=== PATIENT | male | born 1960 | race Caucasian/White ===

== ENCOUNTER 2016-10-25 12:45 | Observation (INO) ==
--- NOTE | 2016-10-25 13:34 | Emergency Department Note ---
Disposition Clinical Impression: Hip pain, Unable to walk, Muscle spasm Disposition: Home, Self-Care Condition: Fair Referrals: Linda Penlaoza UNDERWATER WELDER [Primary Care Provider] - Forms: ED Satisfaction Letter Time of Disposition: 15:27 (navarrete obsv) Fall HPI - General Chief Complaint: ED Fall Stated Complaint: pain to right hip Time Seen by Provider: 10/25/16 13:00 Source: patient, EMS Mode of arrival: EMS Limitations: no limitations Nursing Notes Reviewed: Yes Vital Signs Reviewed: Yes - History of Present Illness HPI Narrative: Patient reportedly took 510 mg Flexeril 5 days ago collapsed at home and fell and hit his head since then he has been nonweightbearing unable to put any weight on the hip and is complaining of hip pain and inability to ambulate since the fall Pt Subjective Complaint: fall Onset (ago): day(s) (5) Fall From: standing Fall Witnessed: no Place Fall Occurred: home Loss of Consciousness: none Prolonged Down Time?: no (but unablle to ambulate since fall) Symptoms Prior to Fall: none Context: tripped/slipped, history of frequent falls Location of injury: hip Location of injury - extremities: Right: hip Severity: severe Severity scale (1-10): 10 Quality: unable to describe Associated symptoms (after fall): Reports: unable to walk. Denies: headache, neck pain, numbness, weakness, chest pain, shortness of breath, abdominal pain, hematuria, lightheaded, vertigo, confusion - Related Data Home Medications Medication Instructions Recorded Confirmed Albuterol Sulfate [Albuterol 0 puff IH Q6HR 10/25/16 10/25/16 Inhaler] Budesonide/Formoterol 160/4.5 2 puff IH BIDR 10/25/16 10/25/16 [Symbicort 160/4.5] Cyclobenzaprine [Flexeril] 10 mg PO HS 10/25/16 10/25/16 Duloxetine HCl 40 mg PO DAILY 10/25/16 10/25/16 Fenofibrate [Lofibra] 160 mg PO DAILY 10/25/16 10/25/16 Gabapentin [Neurontin] 800 mg PO QID 10/25/16 10/25/16 Insulin ASPART [NovoLOG] 10 unit SQ TIDWM 10/25/16 10/25/16 Linagliptin [Tradjenta] 5 mg PO DAILY 10/25/16 10/25/16 Lisinopril [Zestril] 10 mg PO DAILY 10/25/16 10/25/16 Omeprazole 20 mg PO DAILY 10/25/16 10/25/16 Pravastatin Sodium 10 mg PO HS 10/25/16 10/25/16 Allergies Allergy/AdvReac Type Severity Reaction Status Date / Time diphenhydramine Allergy Nausea Verified 11/29/15 10:16 [From Benadryl] All systems ED: reviewed and negative except as stated. Constitutional: Reports: weakness. Denies: fever, chills Eyes: Denies: vision change ENT ED: Denies: ear pain, throat pain Cardiovascular: Denies: chest pain, palpitations Respiratory: Denies: cough, dyspnea, wheezes Gastrointestinal: Denies: abdominal pain, nausea, vomiting Genitourinary: Denies: urgency, dysuria, frequency Musculoskeletal: Reports: arthralgia, myalgia Integumentary: Denies: rash, abrasion Neurological: Reports: weakness. Denies: headache Psychiatric: Denies: anxiety Endocrine: Reports: fatigue Hematological/Lymphatic: Denies: easy bleeding Allergic/Immunologic: Denies: facial swelling Fall PMH - Past Medical History Medical history: Reports: COPD, diabetes, GERD, hypertension, other Surgical history: Reports: appendectomy Psychiatric history: Reports: no psych history - Social History Smoking Status: Current every day smoker Alcohol use: Reports: none Drug use: Reports: none Physical Exam - General Limitations: no limitations General appearance: alert, in no apparent distress - Head Head exam: atraumatic, normocephalic, normal inspection - Eye Eye exam: Present: normal appearance, PERRL, EOMI - ENT ENT exam: normal exam, normal oropharynx, mucous membranes moist, TM's normal bilaterally, normal external ear exam - Neck Neck exam: Present: normal inspection, full ROM, trachea midline - Chest Chest inspection: Present: normal inspection, symmetric chest wall rise - Respiratory Respiratory exam: Present: normal lung sounds bilaterally - Cardiovascular Cardiovascular exam: Present: regular rate, normal rhythm, normal heart sounds - Abdominal Exam Abdominal exam: Present: soft, Non-Tender, normal bowel sounds - Expanded Upper Extremity Exam Shoulder exam: Present: normal inspection, full ROM Arm exam: Present: normal inspection, full ROM Elbow exam: Present: normal inspection, full ROM Forearm/Wrist exam: Present: normal inspection, full ROM Hand exam: Present: normal inspection, full ROM Neurosensory exam: Normal: radial nerve, ulnar nerve, median nerve Vascular exam: Normal: capillary refill, radial pulse, ulnar pulse - Expanded Lower Extremity Exam Hip/Pelvis exam: Present: normal inspection, full ROM (while supine but unable to wgt bear), tenderness Upper leg exam: Present: normal inspection, full ROM, tenderness, other (There is no swelling of the upper leg there is pain with palpation along the vastus medialis as well as along the lateral femoral sheath but no bruising no ecchymosis no edema no ropiness or deformity noted) Knee exam: Present: normal inspection, full ROM Lower leg exam: Present: normal inspection, full ROM Ankle exam: Present: normal inspection, full ROM Foot/toe exam: Present: normal inspection, full ROM Neurovascular/Tendon exam: Present: normal capillary refill, normal fine/light touch. Absent: motor deficit, sensory deficit, tendon deficit Gait: unable to bear weight - Back Exam Back exam: Present: normal inspection, full ROM. Absent: muscle spasm - Neurological Exam Neurological exam: Present: alert, oriented X3, CN II-XII intact - Psychiatric Psychiatric exam: Present: normal affect, normal mood - Skin Skin exam: Present: warm, dry, intact, normal color Course Course Narrative: Seen examine patient was admitted after he is unable to bear weight spoke with Dr. Navarrete of the findings transfers med surge stable also will need for respit Vital Signs Temperature 98.6 F 10/25/16 12:48 Pulse Rate 106 10/25/16 12:48 Respiratory Rate 18 10/25/16 12:48 Blood Pressure 151/98 10/25/16 12:48 O2 Sat by Pulse Oximetry 93 L 10/25/16 12:48 Temperature 98.6 F 10/25/16 12:51 Pulse Rate 93 10/25/16 14:31 Respiratory Rate 18 10/25/16 14:31 Blood Pressure 138/85 10/25/16 14:31 O2 Sat by Pulse Oximetry 95 10/25/16 14:31 Oxygen Delivery Oxygen Delivery Room Air Fall - Differential Diagnosis Likely: traumatic injury - Medical Records Medical records reviewed: Yes I reviewed the patient's medical records. Critical Care Time Critical Care Time: No
[2016-10-25] MEDS ORDERED: Ketorolac 60 MG/2 ML VIAL IM ONE (15:35)
[2016-10-25] MEDS ORDERED: Orphenadrine 60 MG/2 ML VIAL IM ONE (15:35)
[2016-10-25 15:53] LABS: Basophils # 0.1 K/mcL (0.0-0.2); Basophils % 0.7 %; Eosinophils # 0.2 K/mcL (0.0-0.6); Eosinophils % 1.7 %; Hematocrit 47.2 % (37.5-50.1); Hemoglobin 16.1 g/dL (12.9-16.9); Mean Corpuscular HGB Conc 34.1 g/dL (31.6-35.5); Mean Corpuscular Hemoglobin 33.3 pg (28.0-33.3); Mean Corpuscular Volume 97.5 fL (83.0-100.0); Mean Platelet Volume 10.7 fL (9.4-12.4); Monocytes # 1.1 K/mcL (0.0-1.3); Monocytes % 11.1 %; Neutrophils # 6.2 K/mcL (1.6-8.9); Platelet Count 166 K/mcL (140-400); Red Blood Count 4.84 M/mcL (4.19-5.50); Red Cell Distribution Width 12.7 % (11.5-14.5); Segmented Neutrophils % 64.5 %
[2016-10-25 15:55] LABS: Bilirubin,Urine Negative (Negative); Blood,Urine Negative (Negative); Clarity,Urine Clear (Clear); Color,Urine Yellow (Yellow); Glucose,Urine (UA) 500 mg/dL (Normal); Ketones,Urine Negative (Negative); Leukocyte Esterase,Urine Negative (Negative); Nitrite,Urine Negative (Negative); Protein,Urine 30 mg/dL (Neg-Trace); Urobilinogen,Urine Normal (Normal)
[2016-10-25 16:07] LABS: INR 1.2; Prothrombin Time 13.5 Seconds (9.4-12.1)
[2016-10-25 16:09] LABS: BUN/Creatinine Ratio 16 (6-26); Blood Urea Nitrogen 15 mg/dL (8-26); Calcium 8.8 mg/dL (8.6-10.8); Carbon Dioxide 29 mEq/L (19-29); Chloride 100 mEq/L (98-109); Glucose 174 mg/dL (70-99); Osmolality,Calculated 291 (280-300); Potassium 4.5 mEq/L (3.5-4.5); Sodium 138 mEq/L (136-145); eGFR For African Americans > 60 (> 60); eGFR For Non-African Americans > 60 (> 60)
[2016-10-25 16:10] LABS: Activated Partial Thrombo Time 26.2 Seconds (26.0-36.0)
[2016-10-25] MEDS ORDERED: Naloxone 0.4 MG/ML INJ IVP PRN (16:12)
[2016-10-25] MEDS ORDERED: Ibuprofen 400 MG TABLET PO PRN (16:12)
[2016-10-25] MEDS: Gabapentin 400 MG CAPSULE PO SCH ×2 (18:35→21:38)
[2016-10-25] MEDS: Insulin LISPRO 300 UNITS/3 ML VIAL SQ SCH (18:36)
[2016-10-25] MEDS: *HR* HYDROcodone/Acet 5/325 mg TABLET PO PRN (19:02)
[2016-10-25] MEDS: Budesonide/Formoterol 160/4.5 MDI IH SCH (22:44)
[2016-10-26] MEDS: Budesonide/Formoterol 160/4.5 MDI IH SCH ×2 (09:26→21:01)
[2016-10-26] MEDS: Insulin LISPRO 300 UNITS/3 ML VIAL SQ SCH ×4 (10:09→18:46)
[2016-10-26] MEDS: PredniSONE 20 MG TABLET PO SCH ×2 (10:09→17:25)
[2016-10-26] MEDS: Gabapentin 400 MG CAPSULE PO SCH ×4 (10:10→21:37)
[2016-10-26] MEDS: Fenofibrate 54 MG TABLET PO SCH (10:10)
[2016-10-26] MEDS: *HR* HYDROcodone/Acet 5/325 mg TABLET PO PRN ×2 (10:11→21:37)
--- NOTE | 2016-10-26 17:31 | Internal Med History&Physical ---
Date of Encounter: 10/26/16 Time of Encounter: 17:24 Assessment and Plan (1) Unable to walk Current visit: Yes Status: Acute Hopefully the ibuprofen prednisone will calm down the muscle inflammation and he will be able to walk again (2) Hip pain Current visit: Yes Status: Acute Continue the prednisone [place] and ibuprofen Qualifiers: Laterality: right Qualified Code(s): M25.551 - Pain in right hip (3) Strain of iliopsoas muscle Current visit: Yes Status: Acute Patient fell, cannot bear weight on the right side where the strain is continue the prednisone and consult rehabilitation continue Flexeril, ibuprofen, and [place]. Qualifiers: Encounter type: subsequent encounter Laterality: right Qualified Code(s) : S76.911D - Strain of unspecified muscles, fascia and tendons at thigh level, right thigh, subsequent encounter (4) DM2 (diabetes mellitus, type 2) Current visit: Yes Status: Acute A little high with that prednisone continue Humalog insulin and sliding scale, Qualifiers: Diabetes mellitus complication status: with neurologic complications Diabetes mellitus terminal gauger insulin use: with group home use Qualified Code(s) : E11.42 - Type 2 diabetes mellitus with diabetic polyneuropathy; Z79.4 - [facility] (current) use of insulin (5) COPD (chronic obstructive pulmonary disease) Current visit: Yes Status: Chronic COPD on oxygen at home continued oxygen here, Symbicort Qualifiers: COPD type: unspecified COPD Qualified Code(s): J44.9 - Chronic obstructive pulmonary disease, unspecified (6) Chronic lower back pain Current visit: Yes Status: Chronic Worsening right-sided nerve pain he does have some unless platelets Qualifiers: Back pain laterality: bilateral Sciatica presence: with sciatica Sciatica laterality: bilateral sciatica Qualified Code(s): M54.42 - Lumbago with sciatica, left side; M54.41 - Lumbago with sciatica, right side; G89.29 - Other chronic pain (7) Peripheral neuropathy Current visit: Yes Status: Chronic Continue the Neurontin Qualifiers: Peripheral neuropathy type: polyneuropathy, unspecified Qualified Code(s): G62.9 - Polyneuropathy, unspecified Internal Medicine - H&P: HPI Admitted From: Emergency Dept Plans for Post Hospital Care: Transfer Inp Rehab Fac History of present illness: Mr. Rizo is a 56 year old male is not emergency room after falling at home about 6 days ago. He reported taking 10 Flexeril and fell hit his head and his right since only the fall he has been nonweightbearing that hip and thigh hurts. He is on disability because of having a bad back but it is worse now. He occasionally has headaches and dizziness he has to hold on to start walking after standing up. Reports being hard of hearing. Denies any fevers chills nausea vomiting diarrhea he is review of systems negative. He reports not being L to walk on it today hip walked and fell on the nurses and noise trying to walk the toe and he should not walk without assistance. ER workup showed a CT scan that showed right iliopsoas strain consistent with inflammation and edema as could be why he is weaker on that side. Ports his pain is about 7 or 8 out 10 and only goes about 6 out of 10 with medicine. He feels a little stronger today than yesterday and think she will continue improving. Started him on prednisone With inflammation and edema. Surgery going higher on the prednisone but he is a diabetic name the current doses seems to be effective. Answers questions addressed his concerns Past Med Surg Social Fam HX - Past Medical History Source: patient Medical history: COPD (Oxygen), coronary artery disease, diabetes (Insulin), GERD, hyperlipidemia, hypertension, other (Orthostatic hypotension, chronic lower back pain, history colonic polyp) Psychiatric history: no psych history - Past Surgical History Surgical History: appendectomy, other (Cervical spine plates and lumbar discectomy) - Social History Smoking Status: Current every day smoker (1 pack a day with a [id number] history,Smoking increases your risk of heart attacks, strokes, lung cancer, emphysema,chronic obstructive pulmonary disease, bronchitis, peripheral vascular disease, I recommend that you give it up. If you wants help in the future, please ask your provider.) Smokeless Tobacco Status: No Alcohol use: occasionally, heavy (recommend no more than 2 alcoholic equivalents within 24 hours. And not routinely) Drug use: other (Coffee 3 cups a day, Because caffeine is a stimulant and makes one feel a boost of energy by tapping into ones reserve energy, it can lead to anxiety and panic attacks. When used routiely, it interferes with deep sleep, so the reserve energy isn't being replaced effectively which leads to tiredness , depression, higher risk of infection. I recommend patients gives up daily use. ) Occupational status: disabled (Back and breathing problems) Current living situation: With Family Activity Level: Other (Before fall he was able to ambulate) - Family History Mother Living Status: (Lung cancer at 63) Father Living Status: (Lung cancer at 63 he was a smoker I recommend patient is up smoking and talked with his provider against lung cancer screening) Internal Medicine - H&P: Meds Albuterol Sulfate [Albuterol Inhaler] 0 puff IH Q6HR 10/25/16 [History] Budesonide/Formoterol 160/4.5 [Symbicort 160/4.5] 2 puff IH BIDR 10/25/16 [ History] Cyclobenzaprine [Flexeril] 10 mg PO HS 10/25/16 [History] Duloxetine HCl 40 mg PO DAILY 10/25/16 [History] Fenofibrate [Lofibra] 160 mg PO DAILY 10/25/16 [History] Gabapentin [Neurontin] 800 mg PO QID 10/25/16 [History] Insulin ASPART [NovoLOG] 10 unit SQ TIDWM 10/25/16 [History] Linagliptin [Tradjenta] 5 mg PO DAILY 10/25/16 [History] Lisinopril [Zestril] 10 mg PO DAILY 10/25/16 [History] Omeprazole 20 mg PO DAILY 10/25/16 [History] Pravastatin Sodium 10 mg PO HS 10/25/16 [History] Allergies diphenhydramine [From Benadryl] Allergy (Verified 11/29/15 10:16) Nausea All Systems PM: A 10-system review of systems was performed and is negative for pertinent findings except as documented above in the HPI. - Constitutional Vitals: Temp Pulse Resp BP Pulse Ox 98.2 F 64 16 138/54 92 L 10/26/16 15:19 10/26/16 15:19 10/26/16 15:19 10/26/16 15:19 10/26/16 15:19 - Head Head exam: Present: atraumatic, normocephalic - Eye Eye exam: Present: PERRL, conjuntiva pink, sclera anicteric Pupils: Present: PERRL - Neck Neck exam general surgery: Present: supple, trachea midline. Absent: lymphadenopathy - Respiratory Respiratory exam: Present: CTAB. Absent: accessory muscle use, rales, rhonchi, wheezes - Cardiovascular Cardiovascular exam: Present: RRR, +S1, +S2. Absent: diastolic murmur, gallop, rubs, systolic murmur - GI/Abdominal GI/Abdominal exam: Present: normal bowel sounds, soft, no peritoneal signs. Absent: distended, tenderness - Extremities Exam Extremities exam: Present: warm. Absent: calf tenderness, cyanotic, pedal edema - Neurological Exam Neurological exam: Present: CN II-XII intact, oriented X3. Absent: facial droop , speech deficit Additional comments: Right lower extremity about 4+ and weaker than left - Skin Skin exam: Present: dry, intact Internal Med - H&P Results - Labs CBC & Chem 7: 10/25/16 15:46 10/25/16 15:46
[2016-10-26] MEDS ORDERED: *HR* Dextrose 50 % in Water (Syg) 50 ML SYRINGE IVP PRN (17:54)
[2016-10-26] MEDS ORDERED: D5% in Water 1,000 ML IV PRN (17:54)
[2016-10-26] MEDS ORDERED: Dextrose Gel 15 GM PO PRN ×2 (17:54)
[2016-10-27] MEDS: *HR* HYDROcodone/Acet 5/325 mg TABLET PO PRN ×3 (06:30→21:38)
[2016-10-27] MEDS: PredniSONE 20 MG TABLET PO SCH ×2 (09:04→17:17)
[2016-10-27] MEDS: Insulin LISPRO 300 UNITS/3 ML VIAL SQ SCH ×7 (09:04→21:40)
[2016-10-27] MEDS: Fenofibrate 54 MG TABLET PO SCH (09:05)
[2016-10-27] MEDS: Gabapentin 400 MG CAPSULE PO SCH ×4 (09:05→21:37)
[2016-10-27] MEDS: Budesonide/Formoterol 160/4.5 MDI IH SCH ×2 (09:22→20:58)
--- NOTE | 2016-10-27 18:08 | Internal Med Progress Note ---
Date of Encounter: 10/27/16 Time of Encounter: 18:08 - Assessment and plan (1) Unable to walk Current Visit: Yes Status: Acute Assessment and plan: October 27. He will put some pressure on it. PT and OT involved continue prednisone (2) Hip pain Current Visit: Yes Status: Acute Assessment and plan: October 27 pain is controlled on ibuprofen and [place] Qualifiers: Laterality: right Qualified Code(s): M25.551 - Pain in right hip (3) Strain of iliopsoas muscle Current Visit: Yes Status: Acute Assessment and plan: October 27. PT OT consult and steroids Qualifiers: Encounter type: subsequent encounter Laterality: right Qualified Code(s) : S76.911D - Strain of unspecified muscles, fascia and tendons at thigh level, right thigh, subsequent encounter (4) DM2 (diabetes mellitus, type 2) Current Visit: Yes Status: Acute Assessment and plan: October 27. Continue sliding scale insulin and scheduled Humalog Qualifiers: Diabetes mellitus complication status: with neurologic complications Diabetes mellitus termite control technician insulin use: with termite control technician use Qualified Code(s) : E11.42 - Type 2 diabetes mellitus with diabetic polyneuropathy; Z79.4 - alf (current) use of insulin (5) COPD (chronic obstructive pulmonary disease) Current Visit: Yes Status: Chronic Assessment and plan: October 27. Continue Symbicort and albuterol nebs Qualifiers: COPD type: unspecified COPD Qualified Code(s): J44.9 - Chronic obstructive pulmonary disease, unspecified (6) Chronic lower back pain Current Visit: Yes Status: Chronic Assessment and plan: October 27. Continue ibuprofen and [place] Qualifiers: Back pain laterality: bilateral Sciatica presence: with sciatica Sciatica laterality: bilateral sciatica Qualified Code(s): M54.42 - Lumbago with sciatica, left side; M54.41 - Lumbago with sciatica, right side; G89.29 - Other chronic pain (7) Peripheral neuropathy Current Visit: Yes Status: Chronic Assessment and plan: October 27. Continue gabapentin Qualifiers: Peripheral neuropathy type: polyneuropathy, unspecified Qualified Code(s): G62.9 - Polyneuropathy, unspecified - Subjective Interval history: October 27. Patient denies any chest pain or shortness breath he reports pain is being controlled he is able to ambulate a little. PT/OT in consultation. His be responding to the prednisone. - Constitutional Vitals: Temp Pulse Resp BP Pulse Ox 97.8 F 98 17 138/85 94 L 10/27/16 16:24 10/27/16 16:24 10/27/16 16:53 10/27/16 16:24 10/27/16 16:53 Exam: General: Alert and oriented, no acute distress Lungs: Clear to auscultation bilaterally without wheezing or crackles Heart: Regular rate and rythms without murmer or rubs Abdomen: Soft, nontender, Extremities: no edema, redness Internal Medicine: Result - Labs CBC & Chem 7: 10/25/16 15:46 10/25/16 15:46 - ABG Interpretation ABG results: PT/INR, D-dimer PT 13.5 Seconds (9.4-12.1) H 10/25/16 15:46 Consult Discharge Plan - Plan Referrals: Linda Penaloza, MATH AND SCIENCES DEPARTMENT CHAIR [Primary Care Provider] - 1 week
[2016-10-28 06:47] LABS: Basophils % 0.3 %; Eosinophils # 0.1 K/mcL (0.0-0.6); Eosinophils % 0.5 %; Hematocrit 45.6 % (37.5-50.1); Hemoglobin 15.8 g/dL (12.9-16.9); Immature Granulocytes % 0.8 % (0-4); Lymphocytes # 2.1 K/mcL (0.6-4.6); Lymphocytes % 16.4 %; Mean Corpuscular HGB Conc 34.6 g/dL (31.6-35.5); Mean Corpuscular Hemoglobin 33.1 pg (28.0-33.3); Mean Corpuscular Volume 95.6 fL (83.0-100.0); Monocytes # 1.3 K/mcL (0.0-1.3); Monocytes % 9.6 %; Neutrophils # 9.4 K/mcL (1.6-8.9); Platelet Count 242 K/mcL (140-400); Red Blood Count 4.77 M/mcL (4.19-5.50); Red Cell Distribution Width 12.5 % (11.5-14.5); Segmented Neutrophils % 72.4 %
[2016-10-28 07:09] LABS: BUN/Creatinine Ratio 25 (6-26); Blood Urea Nitrogen 23 mg/dL (8-26); Calcium 9.7 mg/dL (8.6-10.8); Carbon Dioxide 27 mEq/L (19-29); Chloride 100 mEq/L (98-109); Glucose 250 mg/dL (70-99); Osmolality,Calculated 296 (280-300); Potassium 4.3 mEq/L (3.5-4.5); Sodium 137 mEq/L (136-145); eGFR For African Americans > 60 (> 60); eGFR For Non-African Americans > 60 (> 60)
[2016-10-28] MEDS: Insulin LISPRO 300 UNITS/3 ML VIAL SQ SCH ×7 (07:38→20:37)
[2016-10-28] MEDS: Gabapentin 400 MG CAPSULE PO SCH ×4 (07:43→20:36)
[2016-10-28] MEDS: PredniSONE 20 MG TABLET PO SCH (07:44)
[2016-10-28] MEDS: *HR* HYDROcodone/Acet 5/325 mg TABLET PO PRN ×4 (07:44→20:35)
[2016-10-28] MEDS: Fenofibrate 54 MG TABLET PO SCH (07:44)
[2016-10-28] MEDS: Budesonide/Formoterol 160/4.5 MDI IH SCH ×2 (10:08→21:17)
--- NOTE | 2016-10-28 11:56 | Internal Med Progress Note ---
Date of Encounter: 10/28/16 Time of Encounter: 11:45 - Assessment and plan (1) Strain of iliopsoas muscle Current Visit: Yes Status: Acute Assessment and plan: October 27. PT OT consult and steroids October 28. Changed to scheduled Naprosyn and Tylenol. We will discontinue prednisone. Qualifiers: Encounter type: subsequent encounter Laterality: right Qualified Code(s) : S76.911D - Strain of unspecified muscles, fascia and tendons at thigh level, right thigh, subsequent encounter (2) Hypertension Current Visit: Yes Status: Acute Assessment and plan: October 28. Blood pressure is not well controlled. Will increase Zestril dose and discontinue prednisone Qualifiers: Hypertension type: essential hypertension Qualified Code(s): I10 - Essential (primary) hypertension (3) DM2 (diabetes mellitus, type 2) Current Visit: Yes Status: Acute Assessment and plan: October 27. Continue sliding scale insulin and scheduled Humalog October 28. We will discontinue prednisone. Check hemoglobin A1c. Continue Accu-Cheks with SSI Qualifiers: Diabetes mellitus complication status: with neurologic complications Diabetes mellitus fpc insulin use: with petroleum terminal plant operator use Qualified Code(s) : E11.42 - Type 2 diabetes mellitus with diabetic polyneuropathy; Z79.4 - local intermodal truck driver (current) use of insulin (4) Peripheral neuropathy Current Visit: Yes Status: Chronic Assessment and plan: October 27. Continue gabapentin October 28. Will check TSH and B12 level. 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 He has no new complaints. He states he fell in the bathroom since admission and was told he must have assistance in ambulation. He has not had full evaluations by PT or OT yet. - Constitutional Vitals: Temp Pulse Resp BP Pulse Ox 97.6 F 99 18 150/83 94 L 10/28/16 10:10/28/16 10:10/28/16 10:10/28/16 10:10/28/16 10:08 Exam: He has mild pain on flexion of the hip and on internal and external rotation. There is no pitting edema. His heart is regular without murmurs gallops or ectopics. Lungs are clear anteriorly. I reviewed his medications and lab results. Internal Medicine: Result - Labs CBC & Chem 7: 10/28/16 06:13 10/28/16 06:13 Labs: Short CBC 10/28/16 Range/Units 06:13 WBC 13.0 H (4.3-11.1) K/mcL Hgb 15.8 (12.9-16.9) g/dL Hct 45.6 (37.5-50.1) % Plt Count 242 (140-400) K/mcL Neutrophils # 9.4 H (1.6-8.9) K/mcL BMP 10/28/16 06:13 Sodium 137 Potassium 4.3 Chloride 100 Carbon Dioxide 27 BUN 23 Creatinine 0.93 Glucose 250 H Calcium 9.7 - ABG Interpretation ABG results: PT/INR, D-dimer PT 13.5 Seconds (9.4-12.1) H 10/25/16 15:46 Consult Discharge Plan - Plan Referrals: Linda Penaloza, HOT TAR ROOFER HELPER [Primary Care Provider] - 1 week
[2016-10-28] MEDS: Tiotropium 18 MCG inhalation IH SCH (15:14)
[2016-10-28] MEDS: Nicotine 21 MG PATCH.TD24 TD SCH (15:36)
[2016-10-29] MEDS: *HR* HYDROcodone/Acet 5/325 mg TABLET PO PRN ×2 (01:30→20:42)
[2016-10-29] MEDS: Lisinopril 20 MG TABLET PO SCH (07:58)
[2016-10-29] MEDS: Gabapentin 400 MG CAPSULE PO SCH ×4 (08:01→20:42)
[2016-10-29] MEDS: Fenofibrate 54 MG TABLET PO SCH (08:02)
[2016-10-29] MEDS: Insulin LISPRO 300 UNITS/3 ML VIAL SQ SCH ×7 (08:09→20:47)
[2016-10-29 09:14] LABS: Hemoglobin A1C 8.5 %
--- NOTE | 2016-10-29 09:32 | Internal Med Progress Note ---
Date of Encounter: 10/29/16 Time of Encounter: 09:25 - Assessment and plan (1) Strain of iliopsoas muscle Current Visit: Yes Status: Acute Assessment and plan: October 27. PT OT consult and steroids October 28. Changed to scheduled Naprosyn and Tylenol. We will discontinue prednisone. October 29. I will add scheduled OxyContin low-dose. Continue scheduled Tylenol, gabapentin and Naprosyn and prn [place] Qualifiers: Encounter type: subsequent encounter Laterality: right Qualified Code(s) : S76.911D - Strain of unspecified muscles, fascia and tendons at thigh level, right thigh, subsequent encounter (2) Hypertension Current Visit: Yes Status: Acute Assessment and plan: October 28. Blood pressure is not well controlled. Will increase Zestril dose and discontinue prednisone Qualifiers: Hypertension type: essential hypertension Qualified Code(s): I10 - Essential (primary) hypertension (3) DM2 (diabetes mellitus, type 2) Current Visit: Yes Status: Acute Assessment and plan: October 27. Continue sliding scale insulin and scheduled Humalog October 28. We will discontinue prednisone. Check hemoglobin A1c. Continue Accu-Cheks with SSI October 29. Hemoglobin A1c is elevated at 8.5%. Will add metformin and continue Tradjenta and Accu-Cheks with SSI Qualifiers: Diabetes mellitus complication status: with neurologic complications Diabetes mellitus oysterman insulin use: with oysterman use Qualified Code(s) : E11.42 - Type 2 diabetes mellitus with diabetic polyneuropathy; Z79.4 - prison (current) use of insulin (4) Peripheral neuropathy Current Visit: Yes Status: Chronic Assessment and plan: October 27. Continue gabapentin October 28. Will check TSH and B12 level. 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 TSH was normal at 1.892. B12 is pending. Continue Neurontin. Qualifiers: Peripheral neuropathy type: polyneuropathy, unspecified Qualified Code(s): G62.9 - Polyneuropathy, unspecified - Subjective Interval history: October 28. He has no new complaints. He states he fell in the bathroom since admission and was told he must have assistance in ambulation. He has not had full evaluations by PT or OT yet. October 29. He states he is still having significant pain. He reports he was using [place] 10 at home but is only getting [place] 5 in the hospital. He has chronic low back pain. - Constitutional Vitals: Temp Pulse Resp BP Pulse Ox 97.6 F 88 18 151/97 94 L 10/29/16 07:34 10/29/16 07:34 10/29/16 07:34 10/29/16 07:34 10/29/16 07:34 Exam: He is relating in the hallway with LOAN TELLER and a walker. He does not appear to be in significant pain. I reviewed his medications and lab results. Internal Medicine: Result - Labs CBC & Chem 7: 10/28/16 06:13 10/28/16 06:13 - ABG Interpretation ABG results: PT/INR, D-dimer PT 13.5 Seconds (9.4-12.1) H 10/25/16 15:46 Consult Discharge Plan - Plan Referrals: Linda Penaloza, PROTECTIVE SIGNAL OPERATIONS SUPERVISOR [Primary Care Provider] - 1 week
[2016-10-29] MEDS: Budesonide/Formoterol 160/4.5 MDI IH SCH ×2 (10:35→22:29)
[2016-10-29] MEDS: Tiotropium 18 MCG inhalation IH SCH (10:35)
[2016-10-29] MEDS: Nicotine 21 MG PATCH.TD24 TD SCH (12:01)
[2016-10-29] MEDS: *HR* Metformin 500 MG TABLET PO SCH ×2 (12:10→18:14)
[2016-10-29] MEDS: *HR* OxyCODONE ER (12 HR) 10 MG TABLET PO SCH ×2 (16:25→17:45)
[2016-10-30] MEDS: *HR* OxyCODONE ER (12 HR) 10 MG TABLET PO SCH ×2 (01:13→07:36)
[2016-10-30 06:14] LABS: Basophils # 0.1 K/mcL (0.0-0.2); Basophils % 0.9 %; Eosinophils # 0.1 K/mcL (0.0-0.6); Eosinophils % 1.1 %; Hematocrit 48.1 % (37.5-50.1); Hemoglobin 16.4 g/dL (12.9-16.9); Immature Granulocytes % 0.8 % (0-4); Lymphocytes # 3.2 K/mcL (0.6-4.6); Lymphocytes % 27.3 %; Mean Corpuscular HGB Conc 34.1 g/dL (31.6-35.5); Mean Corpuscular Hemoglobin 33.2 pg (28.0-33.3); Mean Corpuscular Volume 97.4 fL (83.0-100.0); Mean Platelet Volume 10.4 fL (9.4-12.4); Monocytes # 1.4 K/mcL (0.0-1.3); Monocytes % 12.2 %; Neutrophils # 6.7 K/mcL (1.6-8.9); Platelet Count 278 K/mcL (140-400); Red Blood Count 4.94 M/mcL (4.19-5.50); Red Cell Distribution Width 12.5 % (11.5-14.5); Segmented Neutrophils % 57.7 %
[2016-10-30 06:42] VITALS: BP 117/79
[2016-10-30] MEDS: Insulin LISPRO 300 UNITS/3 ML VIAL SQ SCH ×2 (07:35)
[2016-10-30] MEDS: *HR* Metformin 500 MG TABLET PO SCH (07:36)
[2016-10-30] MEDS: Gabapentin 400 MG CAPSULE PO SCH (07:36)
[2016-10-30] MEDS: Lisinopril 20 MG TABLET PO SCH (07:36)
[2016-10-30] MEDS: Fenofibrate 54 MG TABLET PO SCH (07:36)
[2016-10-30] MEDS: Nicotine 21 MG PATCH.TD24 TD SCH (07:39)
--- NOTE | 2016-10-30 10:17 | Discharge Summary ---
Date of Encounter: 10/30/16 Time of Encounter: 10:00 - Discharge Diagnosis (1) Strain of iliopsoas muscle Priority: Primary Status: Acute Qualifiers: Encounter type: subsequent encounter Laterality: right Qualified Code(s) : S76.911D - Strain of unspecified muscles, fascia and tendons at thigh level, right thigh, subsequent encounter (2) Hypertension Priority: Secondary Status: Chronic Qualifiers: Hypertension type: essential hypertension Qualified Code(s): I10 - Essential (primary) hypertension (3) DM2 (diabetes mellitus, type 2) Priority: Secondary Status: Chronic Qualifiers: Diabetes mellitus complication status: with neurologic complications 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: with snf use Qualified Code(s) : E11.42 - Type 2 diabetes mellitus with diabetic polyneuropathy; Z79.4 - director long term care (current) use of insulin (4) Peripheral neuropathy Priority: Secondary Status: Chronic Qualifiers: Peripheral neuropathy type: polyneuropathy, unspecified Qualified Code(s): G62.9 - Polyneuropathy, unspecified - Discharge Medications Prescriptions: OxyCODONE ER (12 HR) [OxyCONTIN] 10 mg PO Q8HR #15 tab.er.12h Lisinopril [Zestril] 20 mg PO DAILY #30 tablet Metformin [Glucophage] 500 mg PO BIDWM #60 tablet Naproxen [Naprosyn] 500 mg PO BIDWM #14 tablet Tiotropium [Spiriva] 18 mcg IH DAILYR 30 Days Home Medications: Budesonide/Formoterol 160/4.5 [Symbicort 160/4.5] 2 puff IH BIDR 10/25/16 [ History] Cyclobenzaprine [Flexeril] 10 mg PO HS 10/25/16 [History] Duloxetine HCl 40 mg PO DAILY 10/25/16 [History] Fenofibrate [Lofibra] 160 mg PO DAILY 10/25/16 [History] Gabapentin [Neurontin] 800 mg PO QID 10/25/16 [History] Insulin ASPART [NovoLOG] 10 unit SQ TIDWM 10/25/16 [History] Pravastatin Sodium 10 mg PO HS 10/25/16 [History] Albuterol Sulfate [Albuterol Inhaler] 2 puff IH Q4H PRN #0 10/30/16 [Rx] Lisinopril [Zestril] 20 mg PO DAILY #30 tablet 10/30/16 [Rx] Metformin [Glucophage] 500 mg PO BIDWM #60 tablet 10/30/16 [Rx] Naproxen [Naprosyn] 500 mg PO BIDWM #14 tablet 10/30/16 [Rx] Omeprazole 20 mg PO DAILY PRN #0 10/30/16 [Rx] OxyCODONE ER (12 HR) [OxyCONTIN] 10 mg PO Q8HR #15 tab.er.12h 10/30/16 [Rx] Tiotropium [Spiriva] 18 mcg IH DAILYR 30 Days 10/30/16 [Rx] Allergies/Adverse Reactions: Allergies diphenhydramine [From Benadryl] Allergy (Verified 11/29/15 10:16) Nausea Date of admission: 10/25/16 15:42 Primary care physician: Linda Penaloza CNP Consults: 10/25/16 18:44 Consult to Nutrition [CONS] Routine Comment: Consulting Provider: NUTRITION Reason for Dietary Consult: MST Score - Patient Status Disposition: Home, Self-Care Condition: Fair Functional capacity at discharge: uses cane/walker Overall status at discharge: patient is progressing back to baseline - Discharge Instructions Follow Up With: Linda Penaloza CNP [Primary Care Provider] - 1 week - Diet and Activity Activity: resume usual activities as tolerated Diet: advance to your usual diet Hospital course: Mr. Rizo is a 56 year old male who came to the hospital complaining of pain in his hip and groin after a fall 6 days previously. Evaluation including CAT scan showed right iliopsoas strain consistent with inflammation and edema. Initial orders were written by the emergency room physician. Dr. Colmenares saw him on October 26 and performed history and physical. I assumed care on October 28. He was initially given prednisone but I changed him to scheduled NSAID medication. He was given OxyContin as well as his home dose of prn narcotics. His ambulation improved and his pain lessened. On October 30 he was stable for discharge home. Additional lab work done during hospitalization showed hemoglobin A1c elevated at 8.5%. I started him on metformin and this will be continued at discharge. His blood pressure was suboptimally controlled. I increased his Zestril to 20 mg daily and this will be continued at discharge. He will follow with Linda Penaloza CNP within 1 week. - Time Spent with Patient Total time spent providing and/or coordinating discharge services: - Constitutional Vitals: Temp Pulse Resp BP Pulse Ox 97.8 F 102 16 117/79 96 10/30/16 06:40 10/30/16 06:40 10/30/16 06:40 10/30/16 06:40 10/30/16 06:40
[2016-10-30] MEDS: Budesonide/Formoterol 160/4.5 MDI IH SCH (10:26)
[2016-10-30] MEDS: Tiotropium 18 MCG inhalation IH SCH (10:27)
[2016-10-30] MEDS ORDERED: FLU VACC QS2016-17 36MOS UP/PF 0.5 ML SYRINGE IM ONE (10:42)
== END 2016-10-30 11:18 | disposition home or self-care (01) ==
LOC: EMEROOPIK 12:45 → INPPIK 12:45
PROVIDERS: ADMIT Internal Medicine; ATTEND Internal Medicine

== ENCOUNTER 2018-09-10 13:58 | Observation (INO) ==
--- NOTE | 2018-09-10 14:20 | Emergency Department Note ---
Disposition Clinical Impression: Altered mental status Disposition: Admitted As Inpatient Condition: Fair Altered Mental Status HPI - General Chief Complaint: ED Altered Mental Status Stated Complaint: CONFUSION Time Seen by Provider: 09/10/18 14:08 Source: patient, EMS Mode of arrival: EMS Limitations: altered mental status, physical limitation (stroke Left side), age Nursing Notes Reviewed: Yes Vital Signs Reviewed: Yes - History of Present Illness HPI Narrative: 57-year-old male who is brought in for altered mental status patient apparently has history of brain metastases and has been having repeated falls over the course the weekend he's had a 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 but the patient is now here where he is list sure what was going on and was unable to answer questions appropriate for the care given a physician of the house and her concerns was that he had infection it is reported that [facility] 3 times over the course of weekend where he just wanted water and is route result he is here patient denies any chest pain just prescribed outpatient cough hemoptysis sputum production he does admit that he has brain tumors he denies diarrhea melena hematochezia hematemesis blurred vision double vision loss vision he states it is soft and as result patient was brought to the ER for further evaluation 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 has been working with Mary to try to get him admitted [facility] he is in the process of having her evaluated done at this time MD complaint: altered mental status, decreased responsiveness Onset (ago): week(s) Timing confirmed by: caregiver Pain Severity: moderate Pain Scale: 4 Context: history of similar presentation Associated symptoms: Reports: loss of appetite, malaise, weakness, difficulty walking - Related Data Home Medications Medication Instructions Recorded Confirmed Aspirin [Lo-Dose Aspirin EC] 81 mg PO DAILY 08/27/17 09/10/18 Duloxetine HCl [Cymbalta] 60 mg PO DAILY 08/27/17 09/10/18 Fenofibrate Nanocrystallized 160 mg PO DAILY 08/27/17 09/10/18 [Triglide] Fluticasone/Salmeterol [Advair 1 puff IH BID 08/27/17 09/10/18 500-50 Diskus] Gabapentin [Neurontin] 800 mg PO TID 08/27/17 09/10/18 HYDROcodone/Acet 10/325 mg [[place] 1 tab PO Q6HR PRN 08/27/17 09/10/18 10-325 mg] Insulin Glargine [Lantus] 10 units SQ TID 08/27/17 09/10/18 Pravastatin Sodium [Pravachol] 10 mg PO HS 08/27/17 09/10/18 RX: Lisinopril [Zestril] 10 mg PO DAILY 08/27/17 09/10/18 RX: Omeprazole [PriLOSEC] 20 mg PO DAILY 08/27/17 09/10/18 Roflumilast [Daliresp] 500 mcg PO DAILY 08/27/17 09/10/18 Previous Rx's Medication Instructions Recorded Ondansetron [Zofran] 8 mg PO Q8HR PRN #45 tablet 07/08/18 Prochlorperazine Maleate 10 mg PO Q6HR PRN #90 tablet 07/08/18 [Compazine] RX: Dexamethasone [Decadron] 4 mg PO BID PRN #45 tab 07/08/18 Alcohol Antiseptic Pads [Alcohol 1 each TP DAILY #1 pkg 07/15/18 Pads] Nicotine [Nicotine Patch] 1 each TD AD #1 pkg 07/15/18 Megestrol Acetate [Megace] 800 mg PO DAILY #400 mls 08/10/18 Zolpidem [Ambien] 5 mg PO HS 30 Days #30 tablet 08/19/18 Allergies Allergy/AdvReac Type Severity Reaction Status Date / Time diphenhydramine AdvReac See Verified 08/19/18 08:44 [From Benadryl] Comments All systems ED: reviewed and negative except as stated. Review of Systems: As Per HPI Constitutional: Reports: weakness. Denies: fever, chills Eyes: Denies: eye pain, eye discharge ENT ED: Denies: ear pain, throat pain Cardiovascular: Denies: chest pain, palpitations, dyspnea on exertion Respiratory: Denies: cough, dyspnea, wheezes Gastrointestinal: Denies: abdominal pain, nausea, vomiting Genitourinary: Denies: urgency, dysuria, frequency Musculoskeletal: Denies: back pain, neck pain Integumentary: Denies: rash, abrasion Neurological: Denies: headache, weakness Psychiatric: Denies: anxiety Endocrine: Denies: fatigue Hematological/Lymphatic: Denies: easy bleeding, easy bruising Allergic/Immunologic: Denies: facial swelling Past Medical History - Past Medical History Attestation: Yes The following information was validated with the patient. Source: patient, old records reviewed, obtained from family (And caregiver), nursing notes reviewed Medical history: Reports: cancer, COPD, coronary artery disease, CVA, diabetes, GERD, hyperlipidemia, hypertension, other Surgical history: Reports: appendectomy, other Psychiatric history: Reports: no psych history - Social History Smoking Status: Current every day smoker Smokeless Tobacco Status: No Alcohol use: Reports: none Drug use: Reports: none Physical Exam - General Limitations: altered mental status General appearance: alert, in no apparent distress - Head Head exam: normocephalic, normal inspection - Expanded Head Exam 1 - Bruising to the left frontal scalp there is bruising over the left superior - Eye Eye exam: Present: PERRL, EOMI - ENT ENT exam: normal exam, normal oropharynx, mucous membranes moist, TM's normal bilaterally, normal external ear exam - Neck Neck exam: Present: normal inspection, full ROM, trachea midline - Chest Chest inspection: Present: normal inspection, symmetric chest wall rise - Respiratory Respiratory exam: Present: normal lung sounds bilaterally - Cardiovascular Cardiovascular exam: Present: regular rate, normal rhythm, normal heart sounds - Abdominal Exam Abdominal exam: Present: soft, Non-Tender, normal bowel sounds. Absent: mass, pulsatile mass - Extremities Exam Extremities exam: Present: normal capillary refill, other (Patient has normal inspection sitting extremities but he has decreased range of motion on the left- hand side in comparison to the right he does not have any strength to lift the l eg up off the bed he can lift his right arm up off the bed is able to wiggle foot). Absent: pedal edema, joint swelling, calf tenderness - Expanded Lower Extremity Exam Neurovascular/Tendon exam: Present: normal capillary refill, normal fine/light touch Gait: observed and normal - Back Exam Back exam: Present: normal inspection, full ROM. Absent: muscle spasm - Neurological Exam Neurological exam: Present: alert, oriented X3, CN II-XII intact - Psychiatric Psychiatric exam: Present: normal affect, normal mood - Skin Skin exam: Present: warm, dry, intact, normal color Course Course Narrative: Patient seen and examined directly to CAT scan EKG and By[place] catheter was done this patient was able to urinate for some labs were obtained family was then brought back as the patient was taken directly back to the CAT scan to rule out the possibility of an acute stroke. Patient is smiling appears to be slightly confused and resting comfortably at this time sided weakness has been reported as from prior CVA Vital Signs Temperature 98 F 09/10/18 13:58 Pulse Rate 95 09/10/18 13:58 Respiratory Rate 18 09/10/18 13:58 Blood Pressure 137/81 09/10/18 13:58 O2 Sat by Pulse Oximetry 92 09/10/18 13:58 Temperature 98.4 F 09/10/18 19:16 Pulse Rate 89 09/10/18 19:16 Respiratory Rate 18 09/10/18 19:14 Blood Pressure 114/80 09/10/18 19:14 O2 Sat by Pulse Oximetry 94 09/10/18 20:03 Oxygen Delivery Oxygen Delivery Room Air Altered Mental Status - MDM Narrative Medical decision making narrative: frequent falls - Differential Diagnosis Likely: altered mental status - Medical Records Medical records reviewed: Yes I reviewed the patient's medical records. - Lab Data Lab results reviewed: Yes I reviewed the patient's lab results. Result diagrams: 09/10/18 14:29 09/10/18 14:29 Lab Results 09/10/18 09/10/18 09/10/18 Range/Units 14:29 14:29 14:29 WBC 10.5 (4.3-11.1) K/mcL RBC 4.32 (4.19-5.50) M/mcL Hgb 13.9 (12.9-16.9) g/dL Hct 41.7 (37.5-50.1) % MCV 96.5 (83.0-100.0) fL MCH 32.2 (28.0-33.3) pg MCHC 33.3 (31.6-35.5) g/dL RDW 15.6 H (11.5-14.5) % Plt Count 246 (140-400) K/mcL MPV 10.3 (9.4-12.4) fL Immature Gran % 0.5 (0-4) % Seg Neutrophils % 71.9 % Lymphocytes % 17.2 % Monocytes % 8.5 % Eosinophils % 1.4 % Basophils % 0.5 % Neutrophils # 7.5 (1.6-8.9) K/mcL Lymphocytes # 1.8 (0.6-4.6) K/mcL Monocytes # 0.9 (0.0-1.3) K/mcL Eosinophils # 0.2 (0.0-0.6) K/mcL Basophils # 0.1 (0.0-0.2) K/mcL PT 14.0 H (9.4-12.1) Seconds INR 1.2 APTT 20.6 L (26.0-36.0) Seconds Sodium 141 (136-145) mEq/L Potassium 4.3 (3.5-5.1) mEq/L Chloride 104 (98-107) mEq/L Carbon Dioxide 29 (23-29) mEq/L BUN 24 H (6-20) mg/dL Creatinine 0.83 (0.70-1.30) mg/dL Est GFR ( Amer) > 60 (> 60) Est GFR (Non-Af Amer) > 60 (> 60) BUN/Creatinine Ratio 29 H (6-26) Glucose 175 H (70-105) mg/dL Calculated Osmolality 300 (280-300) Lactic Acid (0.5-2.2) mmol/L Calcium 10.2 (8.6-10.3) mg/dL Total Bilirubin 0.3 (0.3-1.0) mg/dL AST 18 (13-39) Units/L ALT 13 (7-52) Units/L Alkaline Phosphatase 45 (34-104) Units/L Troponin I 0.03 (< 0.04) ng/mL Serum Total Protein 7.9 (6.4-8.9) g/dL Albumin 4.2 (3.5-5.7) g/dL Globulin 3.7 H (2.4-3.5) g/dL Albumin/Globulin Ratio 1.1 (1.1-2.2) Urine Color (Yellow) Urine Clarity (Clear) Urine pH (5.0-8.0) pH Units Ur Specific [place] (1.010-1.025) Urine Protein (Neg-Trace) mg/dL Urine Glucose (UA) (Normal) mg/dL Urine Ketones (Negative) mg/dL Urine Blood (Negative) Urine Nitrite (Negative) Urine Bilirubin (Negative) Urine Urobilinogen (Normal) mg/dL Ur Leukocyte Esterase (Negative) Urine Bacteria (None-Few) per hpf Urine Mucus (Few) Ur Culture Indicated? (NO) 09/10/18 09/10/18 Range/Units 14:29 15:25 WBC (4.3-11.1) K/mcL RBC (4.19-5.50) M/mcL Hgb (12.9-16.9) g/dL Hct (37.5-50.1) % MCV (83.0-100.0) fL MCH (28.0-33.3) pg MCHC (31.6-35.5) g/dL RDW (11.5-14.5) % Plt Count (140-400) K/mcL MPV (9.4-12.4) fL Immature Gran % (0-4) % Seg Neutrophils % % Lymphocytes % % Monocytes % % Eosinophils % % Basophils % % Neutrophils # (1.6-8.9) K/mcL Lymphocytes # (0.6-4.6) K/mcL Monocytes # (0.0-1.3) K/mcL Eosinophils # (0.0-0.6) K/mcL Basophils # (0.0-0.2) K/mcL PT (9.4-12.1) Seconds INR APTT (26.0-36.0) Seconds Sodium (136-145) mEq/L Potassium (3.5-5.1) mEq/L Chloride (98-107) mEq/L Carbon Dioxide (23-29) mEq/L BUN (6-20) mg/dL Creatinine (0.70-1.30) mg/dL Est GFR ( Amer) (> 60) Est GFR (Non-Af Amer) (> 60) BUN/Creatinine Ratio (6-26) Glucose (70-105) mg/dL Calculated Osmolality (280-300) Lactic Acid 0.7 (0.5-2.2) mmol/L Calcium (8.6-10.3) mg/dL Total Bilirubin (0.3-1.0) mg/dL AST (13-39) Units/L ALT (7-52) Units/L Alkaline Phosphatase (34-104) Units/L Troponin I (< 0.04) ng/mL Serum Total Protein (6.4-8.9) g/dL Albumin (3.5-5.7) g/dL Globulin (2.4-3.5) g/dL Albumin/Globulin Ratio (1.1-2.2) Urine Color Yellow (Yellow) Urine Clarity Clear (Clear) Urine pH 6.0 (5.0-8.0) pH Units Ur Specific [place] 1.025 (1.010-1.025) Urine Protein 30 H (Neg-Trace) mg/dL Urine Glucose (UA) 100 H (Normal) mg/dL Urine Ketones Negative (Negative) mg/dL Urine Blood Negative (Negative) Urine Nitrite Negative (Negative) Urine Bilirubin Small H (Negative) Urine Urobilinogen Normal (Normal) mg/dL Ur Leukocyte Esterase Negative (Negative) Urine Bacteria Few (None-Few) per hpf Urine Mucus Few (Few) Ur Culture Indicated? NO (NO) - Radiology Data Radiology results reviewed: Yes I reviewed the patient's radiology results. ITS Impressions Chest X-Ray 09/10/18 14:09 IMPRESSION: Stable exam. No new acute cardiopulmonary findings. D/ / Mariia Napoles MD / Mariia Napoles MD Interpreting Provider: Mariia Napoles MD Head CT 09/10/18 14:09 IMPRESSION: 1. Multifocal patchy low-attenuation within the cerebrum and cerebellum bilaterally in keeping with vasogenic edema related to known intracranial metastases. Hypodense mass within the right thalamus with associated surrounding vasogenic edema. 2. No acute intracranial hemorrhage. No significant mass effect or midline shift. No convincing evidence for acute infarction. Findings were discussed with Eusebia Hussein at 2:32 pm on 09/10/2018. D/ / 09/10/2018 14:39:31 Juan Ramon Zimmer MD / ace Interpreting Provider: Juan Ramon Zimmer MD - EKG Data EKG attestation: Yes I reviewed and interpreted this EKG. EKG results narrative: Sinus tach rate of 163 pr 163 QRS 98 QT 336 access 79 TPA Checklist - LKW: 3-4.5 hrs Add. Warnings/Precautions Patient/family understanding: The patient/family members have been counseled and understood the risk, benefit, and alternatives of treatment. Critical Care Time Critical Care Time: No
[2018-09-10 14:44] LABS: Basophils # 0.1 K/mcL (0.0-0.2); Basophils % 0.5 %; Eosinophils # 0.2 K/mcL (0.0-0.6); Eosinophils % 1.4 %; Hematocrit 41.7 % (37.5-50.1); Hemoglobin 13.9 g/dL (12.9-16.9); Immature Granulocytes % 0.5 % (0-4); Lymphocytes # 1.8 K/mcL (0.6-4.6); Lymphocytes % 17.2 %; Mean Corpuscular HGB Conc 33.3 g/dL (31.6-35.5); Mean Corpuscular Hemoglobin 32.2 pg (28.0-33.3); Mean Corpuscular Volume 96.5 fL (83.0-100.0); Mean Platelet Volume 10.3 fL (9.4-12.4); Monocytes # 0.9 K/mcL (0.0-1.3); Monocytes % 8.5 %; Neutrophils # 7.5 K/mcL (1.6-8.9); Platelet Count 246 K/mcL (140-400); Red Blood Count 4.32 M/mcL (4.19-5.50); Red Cell Distribution Width 15.6 % (11.5-14.5); Segmented Neutrophils % 71.9 %
[2018-09-10 15:02] LABS: Alanine Aminotransferase 13 Units/L (7-52); Albumin 4.2 g/dL (3.5-5.7); Albumin/Globulin Ratio 1.1 (1.1-2.2); Alkaline Phosphatase 45 Units/L (34-104); Aspartate Amino Transferase 18 Units/L (13-39); BUN/Creatinine Ratio 29 (6-26); Bilirubin,Total 0.3 mg/dL (0.3-1.0); Blood Urea Nitrogen 24 mg/dL (6-20); Calcium 10.2 mg/dL (8.6-10.3); Carbon Dioxide 29 mEq/L (23-29); Chloride 104 mEq/L (98-107); Globulin 3.7 g/dL (2.4-3.5); Glucose 175 mg/dL (70-105); Osmolality,Calculated 300 (280-300); Potassium 4.3 mEq/L (3.5-5.1); Sodium 141 mEq/L (136-145); Total Protein 7.9 g/dL (6.4-8.9); eGFR For Non-African Americans > 60 (> 60)
[2018-09-10 15:05] LABS: Troponin I 0.03 ng/mL (< 0.04)
[2018-09-10 15:08] LABS: INR 1.2
[2018-09-10 15:16] LABS: Activated Partial Thrombo Time 20.6 Seconds (26.0-36.0)
[2018-09-10 15:28] LABS: Bilirubin,Urine Small (Negative); Blood,Urine Negative (Negative); Clarity,Urine Clear (Clear); Color,Urine Yellow (Yellow); Glucose,Urine (UA) 100 mg/dL (Normal); Ketones,Urine Negative (Negative); Leukocyte Esterase,Urine Negative (Negative); Nitrite,Urine Negative (Negative); Protein,Urine 30 mg/dL (Neg-Trace); Specific Gravity,Urine 1.025 (1.010-1.025); Urobilinogen,Urine Normal (Normal)
[2018-09-10 15:45] LABS: Bacteria,Urine Few per hpf (None-Few); Mucus,Urine Few (Few)
[2018-09-10] MEDS ORDERED: Naloxone 0.4 MG/ML INJ IVP PRN (17:02)
[2018-09-10] MEDS ORDERED: D5% in Water 1,000 ML IVC PRN (17:02)
[2018-09-10] MEDS ORDERED: *HR* Dextrose 50 % in Water (Syg) 50 ML SYRINGE IVP PRN (17:02)
[2018-09-10] MEDS ORDERED: Ondansetron ODT 4 MG TAB.RAPDIS PO PRN (17:02)
[2018-09-10] MEDS ORDERED: Dextrose Gel 15 GM/37.5 ML TUBE PO PRN ×2 (17:02)
[2018-09-10] MEDS: Nicotine 7 MG PATCH.TD24 TD SCH (18:40)
[2018-09-10] MEDS: ALPRAZolam 0.5 MG TABLET PO PRN (20:01)
[2018-09-10] MEDS: Gabapentin 400 MG CAPSULE PO SCH (20:01)
[2018-09-10] MEDS: *HR* HYDROcodone/Acet 10/325 mg TABLET PO PRN (20:02)
[2018-09-10] MEDS: Insulin DETEMIR 100 UNIT/ML X5UNITS SQ SCH (20:03)
[2018-09-10] MEDS ORDERED: INSULIN GLARGINE 10 UNIT SQ SCH (21:00)
[2018-09-10] MEDS: Budesonide/Formoterol 160/4.5 1 PUFF INH IH SCH (22:20)
[2018-09-11 06:24] LABS: Basophils # 0.1 K/mcL (0.0-0.2); Basophils % 0.7 %; Eosinophils # 0.2 K/mcL (0.0-0.6); Hematocrit 41.2 % (37.5-50.1); Hemoglobin 13.5 g/dL (12.9-16.9); Immature Granulocytes % 0.6 % (0-4); Lymphocytes # 1.7 K/mcL (0.6-4.6); Lymphocytes % 15.2 %; Mean Corpuscular HGB Conc 32.8 g/dL (31.6-35.5); Mean Corpuscular Hemoglobin 31.8 pg (28.0-33.3); Mean Corpuscular Volume 97.2 fL (83.0-100.0); Mean Platelet Volume 10.2 fL (9.4-12.4); Monocytes % 9.2 %; Platelet Count 241 K/mcL (140-400); Red Blood Count 4.24 M/mcL (4.19-5.50); Red Cell Distribution Width 15.5 % (11.5-14.5); Segmented Neutrophils % 72.3 %
[2018-09-11] MEDS: ALPRAZolam 0.5 MG TABLET PO PRN ×2 (06:28→11:04)
[2018-09-11 06:31] LABS: INR 1.2
[2018-09-11 06:34] LABS: Activated Partial Thrombo Time 30.2 Seconds (26.0-36.0)
[2018-09-11 06:43] LABS: BUN/Creatinine Ratio 28 (6-26); Blood Urea Nitrogen 21 mg/dL (6-20); Calcium 9.8 mg/dL (8.6-10.3); Carbon Dioxide 31 mEq/L (23-29); Chloride 103 mEq/L (98-107); Glucose 110 mg/dL (70-105); Osmolality,Calculated 294 (280-300); Potassium 3.7 mEq/L (3.5-5.1); Sodium 140 mEq/L (136-145); eGFR For Non-African Americans > 60 (> 60)
[2018-09-11 07:07] LABS: Neutrophils # 8.2 K/mcL (1.6-8.9)
--- NOTE | 2018-09-11 08:29 | Electrocardiograph Report ---
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
[2018-09-11] MEDS ORDERED: ALCOHOL ANTISEPTIC PADS TP SCH (09:00)
[2018-09-11] MEDS: Megestrol Acetate 400 MG/10 ML UDC PO SCH (09:04)
[2018-09-11] MEDS: Insulin LISPRO 300 UNITS/3 ML VIAL SQ SCH ×3 (09:04→16:44)
[2018-09-11] MEDS: Fenofibrate 54 MG TABLET PO SCH (09:05)
[2018-09-11] MEDS: Gabapentin 400 MG CAPSULE PO SCH ×3 (09:06→22:11)
[2018-09-11] MEDS: Aspirin Enteric Coated 81 MG Tablet PO SCH (09:06)
[2018-09-11] MEDS: Nicotine 7 MG PATCH.TD24 TD SCH (09:07)
[2018-09-11] MEDS: Insulin DETEMIR 100 UNIT/ML X5UNITS SQ SCH ×2 (09:08→22:10)
[2018-09-11] MEDS: Budesonide/Formoterol 160/4.5 1 PUFF INH IH SCH ×2 (10:43→22:37)
--- NOTE | 2018-09-11 11:03 | Internal Med History&Physical ---
Date of Encounter: 09/11/18 Time of Encounter: 10:40 Assessment and Plan (1) Lung cancer Current visit: No Status: Chronic By history. Cell type unknown. Known multiple metastases to brain. He discontinued oncology treatment and chose to go on hospice. Qualifiers: Laterality: unspecified laterality Lung location: unspecified part of lung Qualified Code(s): C34.90 - Malignant neoplasm of unspecified part of unspecified bronchus or lung (2) Metastatic cancer to brain Current visit: No Status: Chronic As per above (3) JULITO (obstructive sleep apnea) Current visit: Yes Status: Chronic Continue CPAP at at bedtime. (4) Multiple falls Current visit: Yes Status: Acute PT and OT evaluations have been ordered. (5) Geronimo's palsy Current visit: Yes Status: Acute Monitor. Treat conjunctivitis. (6) COPD (chronic obstructive pulmonary disease) Current visit: No Status: Chronic Continue Symbicort. Qualifiers: COPD type: unspecified COPD Qualified Code(s): J44.9 - Chronic obstructive pulmonary disease, unspecified (7) DM2 (diabetes mellitus, type 2) Current visit: No Status: Chronic Hemoglobin A1c was 8.2% on 03/11/2018. Continue Levemir and do Accu-Cheks with SSI. Qualifiers: Diabetes mellitus ferry terminal agent insulin use: with halfway use Diabetes mellitus complication status: with neurologic complications Qualified Code(s): E11.42 - Type 2 diabetes mellitus with diabetic polyneuropathy; Z79.4 - Long te rm (current) use of insulin (8) Hypertension Current visit: No Status: Chronic Continue lisinopril Qualifiers: Hypertension type: essential hypertension Qualified Code(s): I10 - Essential (primary) hypertension (9) Conjunctivitis Current visit: Yes Status: Acute Order TobraDex eyedrops. Qualifiers: Conjunctivitis type: acute Acute conjunctivitis type: unspecified Laterality: left Qualified Code(s): H10.32 - Unspecified acute conjunctivitis, left eye Internal Medicine - H&P: HPI Chief complaint: Falls and confusion Admitted From: Emergency Dept Plans for Post Hospital Care: Home History of present illness: Mr. Rizo is a 58 year old male who came to emergency room after having multiple falls at home and appeared confused. He was evaluated in emergency room and admitted to [facility] until further disposition could be made. He is a fair historian. He does not remember many details of his history. He states he was diagnosed with lung cancer with brain metastases August 2018. He states he was seen by oncologists in [place] and states he received some oncologic treatment but felt very ill from the treatment and elected to go on hospice. He denies previous malignancies, anemia, or other blood disorders. Past Med Surg Social Fam HX - Past Medical History Medical history: cancer, COPD, coronary artery disease, CVA, diabetes, GERD, hyperlipidemia, hypertension, other Additional medical history: Lung cancer Psychiatric history: no psych history - Past Surgical History Surgical History: appendectomy, other Additional surgical history: back surgery - Social History Smoking Status: Current every day smoker Packs per day: 2 Smokeless Tobacco Status: No Alcohol use: none Drug use: none - Family History Mother Living Status: Father History Unknown: Yes Living Status: Internal Medicine - H&P: Meds Aspirin [Lo-Dose Aspirin EC] 81 mg PO DAILY 08/27/17 [History] Duloxetine HCl [Cymbalta] 60 mg PO DAILY 08/27/17 [History] Fenofibrate Nanocrystallized [Triglide] 160 mg PO DAILY 08/27/17 [History] Fluticasone/Salmeterol [Advair 500-50 Diskus] 1 puff IH BID 08/27/17 [History] Gabapentin [Neurontin] 800 mg PO TID 08/27/17 [History] HYDROcodone/Acet 10/325 mg [[place] 10-325 mg] 1 tab PO Q6HR PRN 08/27/17 [History] Insulin Glargine [Lantus] 10 units SQ TID 08/27/17 [History] Lisinopril [Zestril] 10 mg PO DAILY 08/27/17 [History] Omeprazole [PriLOSEC] 20 mg PO DAILY 08/27/17 [History] Pravastatin Sodium [Pravachol] 10 mg PO HS 08/27/17 [History] Roflumilast [Daliresp] 500 mcg PO DAILY 08/27/17 [History] Dexamethasone [Decadron] 4 mg PO BID PRN #45 tab 07/08/18 [Rx] Ondansetron [Zofran] 8 mg PO Q8HR PRN #45 tablet 07/08/18 [Rx] Prochlorperazine Maleate [Compazine] 10 mg PO Q6HR PRN #90 tablet 07/08/18 [Rx] Alcohol Antiseptic Pads [Alcohol Pads] 1 each TP DAILY #1 pkg 07/15/18 [Rx] Nicotine [Nicotine Patch] 1 each TD AD #1 pkg 07/15/18 [Rx] Megestrol Acetate [Megace] 800 mg PO DAILY #400 mls 08/10/18 [Rx] Zolpidem [Ambien] 5 mg PO HS 30 Days #30 tablet 08/19/18 [Rx] Allergy/AdvReac Type Severity Reaction Status Date / Time diphenhydramine AdvReac See Verified 08/19/18 08:44 [From Lesley] Comments All Systems PM: A 10-system review of systems was performed and is negative for pertinent findings except as documented above in the HPI. Review of systems: Gen.: His weight has been stable at approximate 92 kg since October 2016 hospitalization Cardiovascular: He has history of hypertension but denies ND heart failure angina DVT or pulmonary embolus. Echocardiogram February 2016 showed LVEF of 60-65%. No significant valvular dysfunction was seen. E/A ratio was 0.9. Respiratory: He states he has smoked since age 24 up to 3 packs per day. He has a diagnosis COPD and uses oxygen at home. He has JULITO and uses CPAP at bedtime GI: He denies disorders of his liver gallbladder or exocrine pancreas : He denies hematuria dysuria or kidney stones Neurologic: Reports having a stroke June 2018 affecting his left face and arm primarily. Review of the [facility] emergency room record of 05/25/2018 shows a diagnosis of Geronimo's palsy affecting the left face. He was transferred from [facility] to [facility] after had CT scan showed likely brain metastases. He denies seizures Endocrine: He was diagnosed with DM 2. He has hyperlipidemia but denies thyroid disease Hematology/oncology: As per history of present illness Psychiatric: He has anxiety and depression but denies the mental health issues [place] skeletal: He has DJD but denies gout or other bone joint or muscle disorders. - Constitutional Vitals: Temp Pulse Resp BP Pulse Ox 98.2 F 108 24 130/86 97 09/11/18 10:46 09/11/18 10:46 09/11/18 10:46 12/07/18 10:46 09/11/18 10:46 Exam: Gen.: He is a well-developed well-nourished male sitting comfortably in a chair at bedside who appears in no acute distress HEENT: Head shows a superficial abrasion in the left forehead without evidence of infection. Eyes: EOMI. He has mucopurulent drainage in the eyelashes on the left eye. There is some erythema of the conjunctiva on the left eye. Mouth: Mucosa is moist. Neck: There is no thyromegaly or adenopathy noted. Heart: Regular without murmurs gallops or ectopics. Rate is approximately 120/m Lungs: No wheezes or crackles are heard. Abdomen: Soft and nontender. No masses or guarding are noted. Extremities: There is no cyanosis edema or clubbing noted. Dorsalis pedis and posttibial pulses are trace palpable bilaterally. His feet are warm to touch. Neurologic: Mental status: He is able to answer some questions but is a fair historian at best. Cranial nerves: He has left facial weakness that involves the forehead. Tongue protrudes midline. EOMI. Motor: There is no pronator d rift. He is able to extend both legs at the knee while in the seated position. Ankle flexion and extension strength against resistance is 2 over 2 bilaterally. There is no cogwheeling or rigidity. Cerebellar: Finger to nose is intact bilaterally. Skin: Warm and dry Internal Med - H&P Results - Labs CBC & Chem 7: 09/11/18 05:25 09/11/18 05:25 Labs: Short CBC 09/10/18 09/11/18 Range/Units 14:29 05:25 WBC 10.5 11.3 H (4.3-11.1) K/mcL Hgb 13.9 13.5 (12.9-16.9) g/dL Hct 41.7 41.2 (37.5-50.1) % Plt Count 246 241 (140-400) K/mcL Neutrophils # 7.5 8.2 (1.6-8.9) K/mcL BMP 09/10/18 09/11/18 14:29 05:25 Sodium 141 140 Potassium 4.3 3.7 Chloride 104 103 Carbon Dioxide 29 31 H BUN 24 H 21 H Creatinine 0.83 0.76 Glucose 175 H 110 H Calcium 10.2 9.8 Cardiac Enzymes 09/10/18 Range/Units 14:29 Troponin I 0.03 (< 0.04) ng/mL Liver Function 09/10/18 Range/Units 14:29 Total Bilirubin 0.3 (0.3-1.0) mg/dL AST 18 (13-39) Units/L ALT 13 (7-52) Units/L Alkaline Phosphatase 45 (34-104) Units/L Albumin 4.2 (3.5-5.7) g/dL Urine 09/10/18 Range/Units 15:25 Urine Color Yellow (Yellow) Urine Clarity Clear (Clear) Urine pH 6.0 (5.0-8.0) pH Units Ur Specific [place] 1.025 (1.010-1.025) Urine Protein 30 H (Neg-Trace) mg/dL Urine Glucose (UA) 100 H (Normal) mg/dL - Impressions ITS Impressions Chest X-Ray 09/10/18 14:09 IMPRESSION: Stable exam. No new acute cardiopulmonary findings. D/ / Mariia Napoles MD / Mariia Napoles MD Interpreting Provider: Mariia Napoles MD Head CT 09/10/18 14:09 IMPRESSION: 1. Multifocal patchy low-attenuation within the cerebrum and cerebellum bilaterally in keeping with vasogenic edema related to known intracranial metastases. Hypodense mass within the right thalamus with associated surrounding vasogenic edema. 2. No acute intracranial hemorrhage. No significant mass effect or midline shift. No convincing evidence for acute infarction. Findings were discussed with Eusebia Hussein at 2:32 pm on 09/10/2018. D/ / 09/10/2018 14:39:31 Juan Ramon Zimmer MD / ace Interpreting Provider: Juan Ramon Zimmer MD
[2018-09-11] MEDS: Tobramycin/Dex Opth DROPS 2.5 ML BOTTLE LEFT EYE SCH ×3 (13:25→22:08)
--- NOTE | 2018-09-12 09:11 | Internal Med Progress Note ---
Date of Encounter: 09/12/18 Time of Encounter: 09:04 - Assessment and plan (1) Lung cancer Current Visit: No Status: Chronic Assessment and plan: September 12. Continue hospice care at discharge. Qualifiers: Laterality: unspecified laterality Lung location: unspecified part of lung Qualified Code(s): C34.90 - Malignant neoplasm of unspecified part of unspecified bronchus or lung (2) Metastatic cancer to brain Current Visit: No Status: Chronic Assessment and plan: September 12. As above (3) JULITO (obstructive sleep apnea) Current Visit: Yes Status: Chronic Assessment and plan: September 12. Continue CPAP at bedtime (4) Multiple falls Current Visit: Yes Status: Acute Assessment and plan: September 12. Continue PT and OT intervention (5) Geronimo's palsy Current Visit: Yes Status: Acute Assessment and plan: September 12. Monitor. Continue conjunctivitis treatment left eye (6) COPD (chronic obstructive pulmonary disease) Current Visit: No Status: Chronic Assessment and plan: September 12. Continue Symbicort Qualifiers: COPD type: unspecified COPD Qualified Code(s): J44.9 - Chronic obstructive pulmonary disease, unspecified (7) DM2 (diabetes mellitus, type 2) Current Visit: No Status: Chronic Assessment and plan: September 12. Hemoglobin A1c was 8.2% on 03/11/2018. Continue Levemir and Accu- Cheks with SSI. Qualifiers: Diabetes mellitus shelter insulin use: with terminal system operator use Diabetes mellitus complication status: with neurologic complications Qualified Code(s): E11.42 - Type 2 diabetes mellitus with diabetic polyneuropathy; Z79.4 - dedicated intermodal truck driver (current) use of insulin (8) Hypertension Current Visit: No Status: Chronic Assessment and plan: September 12. Continue lisinopril Qualifiers: Hypertension type: essential hypertension Qualified Code(s): I10 - Essential (primary) hypertension (9) Conjunctivitis Current Visit: Yes Status: Acute Assessment and plan: September 12. Continue TobraDex Qualifiers: Conjunctivitis type: acute Acute conjunctivitis type: unspecified Laterality: left Qualified Code(s): H10.32 - Unspecified acute conjunctivitis, left eye - Subjective Interval history: September 12. He has no new complaints. - Constitutional Vitals: Temp Pulse Resp BP Pulse Ox 98.2 F 106 17 117/79 94 09/12/18 06:34 09/12/18 06:34 09/12/18 06:34 09/12/18 06:34 09/12/18 06:34 Exam: He is resting comfortably in bed and appears in no acute distress. He has dried mucopurulent drainage in his left eyelashes. Extremities show no edema. I reviewed his medications and lab results. Internal Medicine: Result - Labs CBC & Chem 7: 09/11/18 05:25 09/11/18 05:25 - ABG Interpretation ABG results: PT/INR, D-dimer PT 14.0 Seconds (9.4-12.1) H 09/11/18 05:25 - Impressions Impressions Head CT 09/10/18 14:09 IMPRESSION: 1. Multifocal patchy low-attenuation within the cerebrum and cerebellum bilaterally in keeping with vasogenic edema related to known intracranial metastases. Hypodense mass within the right thalamus with associated surrounding vasogenic edema. 2. No acute intracranial hemorrhage. No significant mass effect or midline shift. No convincing evidence for acute infarction. Findings were discussed with Eusebia Hussein at 2:32 pm on 09/10/2018. D/ / 09/10/2018 14:39:31 Juan Ramon Zimmer MD / ace Interpreting Provider: Juan Ramon Zimmer MD Consult Discharge Plan - Plan Referrals: NONE,PCP [Primary Care Provider] - 1 week
[2018-09-12] MEDS: Budesonide/Formoterol 160/4.5 1 PUFF INH IH SCH ×2 (09:28→22:02)
[2018-09-12] MEDS: Insulin LISPRO 300 UNITS/3 ML VIAL SQ SCH ×3 (09:59→16:20)
[2018-09-12] MEDS: Tobramycin/Dex Opth DROPS 2.5 ML BOTTLE LEFT EYE SCH ×2 (10:00→16:19)
[2018-09-12] MEDS: Aspirin Enteric Coated 81 MG Tablet PO SCH (10:01)
[2018-09-12] MEDS: Megestrol Acetate 400 MG/10 ML UDC PO SCH (10:02)
[2018-09-12] MEDS: Fenofibrate 54 MG TABLET PO SCH (10:02)
[2018-09-12] MEDS: Insulin DETEMIR 100 UNIT/ML X5UNITS SQ SCH ×2 (10:02→21:56)
[2018-09-12] MEDS: Gabapentin 400 MG CAPSULE PO SCH ×3 (10:03→21:51)
[2018-09-12] MEDS: Nicotine 7 MG PATCH.TD24 TD SCH (10:03)
[2018-09-13] MEDS: Insulin LISPRO 300 UNITS/3 ML VIAL SQ SCH ×3 (07:56→16:45)
[2018-09-13] MEDS: Tobramycin/Dex Opth DROPS 2.5 ML BOTTLE LEFT EYE SCH ×3 (07:57→16:44)
[2018-09-13] MEDS: Gabapentin 400 MG CAPSULE PO SCH ×3 (08:00→20:56)
[2018-09-13] MEDS: Aspirin Enteric Coated 81 MG Tablet PO SCH (08:01)
[2018-09-13] MEDS: Fenofibrate 54 MG TABLET PO SCH (08:02)
[2018-09-13] MEDS: Megestrol Acetate 400 MG/10 ML UDC PO SCH (08:03)
[2018-09-13] MEDS: Insulin DETEMIR 100 UNIT/ML X5UNITS SQ SCH ×2 (08:05→20:58)
[2018-09-13] MEDS: Nicotine 7 MG PATCH.TD24 TD SCH (08:05)
[2018-09-13] MEDS: Budesonide/Formoterol 160/4.5 1 PUFF INH IH SCH ×2 (09:38→21:42)
--- NOTE | 2018-09-13 09:39 | Discharge Summary ---
Orders not resulted at time of discharge: Pending orders 09/10/18 14:29 Culture,Blood [BC] Stat Date of Encounter: 09/13/18 Time of Encounter: 09:20 - Discharge Diagnosis (1) Lung cancer Priority: Primary Status: Chronic Qualifiers: Laterality: unspecified laterality Lung location: unspecified part of lung Qualified Code(s): C34.90 - Malignant neoplasm of unspecified part of unspecified bronchus or lung (2) Metastatic cancer to brain Priority: Secondary Status: Chronic (3) JULITO (obstructive sleep apnea) Priority: Secondary Status: Chronic (4) Multiple falls Priority: Secondary Status: Acute (5) Geronimo's palsy Priority: Secondary Status: Acute (6) COPD (chronic obstructive pulmonary disease) Priority: Secondary Status: Chronic Qualifiers: COPD type: unspecified COPD Qualified Code(s): J44.9 - Chronic obstructive pulmonary disease, unspecified (7) DM2 (diabetes mellitus, type 2) Priority: Secondary Status: Chronic Qualifiers: Diabetes mellitus terminologist insulin use: with assisted use Diabetes mellitus complication status: with neurologic complications Qualified Code(s): E11.42 - Type 2 diabetes mellitus with diabetic polyneuropathy; Z79.4 - senior living (current) use of insulin (8) Hypertension Priority: Secondary Status: Chronic Qualifiers: Hypertension type: essential hypertension Qualified Code(s): I10 - Essential (primary) hypertension (9) Conjunctivitis Priority: Secondary Status: Acute Qualifiers: Conjunctivitis type: acute Acute conjunctivitis type: unspecified Laterality: left Qualified Code(s): H10.32 - Unspecified acute conjunctivitis, left eye Hospital course: Mr. Rizo is a 58 year old male who came to emergency room after having multiple falls at home and appeared confused. He was evaluated in emergency room and admitted to [facility] until further disposition could be made. Initial orders were written by the emergency room physician. I saw him on September 11 and performed the history and physical. He was restarted on Decadron. His mental status improved and he was not confused at all when I saw him September 13. He stated plainly he wished to be discharged home. I explained to him that social service was trying to coordinate transfer from Hospital to a local SNF but he stated he wished to go home. He had tachycardia present on several routine vital sign checks. His PCP can decide if changing from lisinopril to beta ana maría to assist in heart rate control is needed. He was given TobraDex and his left eye conjunctivitis improved significantly during hospitalization. He will not continue on antibiotic eyedrops at discharge. His PCP can monitor. He was given a 7 day prescription for Decadron 4 mg twice a day. His PCP can renew the prescription as needed. He will follow with his PCP Lanie Jc CNP within 1 week. - Time Spent with Patient Total time spent providing and/or coordinating discharge services: - Discharge Medications Prescriptions: Dexamethasone [Decadron] 4 mg PO BID #14 tablet Home Medications: Aspirin [Lo-Dose Aspirin EC] 81 mg PO DAILY 08/27/17 [History] Duloxetine HCl [Cymbalta] 60 mg PO DAILY 08/27/17 [History] Fenofibrate Nanocrystallized [Triglide] 160 mg PO DAILY 08/27/17 [History] Fluticasone/Salmeterol [Advair 500-50 Diskus] 1 puff IH BID 08/27/17 [History] Gabapentin [Neurontin] 800 mg PO TID 08/27/17 [History] HYDROcodone/Acet 10/325 mg [[place] 10-325 mg] 1 tab PO Q6HR PRN 08/27/17 [History] Insulin Glargine [Lantus] 10 units SQ TID 08/27/17 [History] Lisinopril [Zestril] 10 mg PO DAILY 08/27/17 [History] Omeprazole [PriLOSEC] 20 mg PO DAILY 08/27/17 [History] Pravastatin Sodium [Pravachol] 10 mg PO HS 08/27/17 [History] Roflumilast [Daliresp] 500 mcg PO DAILY 08/27/17 [History] Dexamethasone [Decadron] 4 mg PO BID PRN #45 tab 07/08/18 [Rx] Ondansetron [Zofran] 8 mg PO Q8HR PRN #45 tablet 07/08/18 [Rx] Prochlorperazine Maleate [Compazine] 10 mg PO Q6HR PRN #90 tablet 07/08/18 [Rx] Alcohol Antiseptic Pads [Alcohol Pads] 1 each TP DAILY #1 pkg 07/15/18 [Rx] Nicotine [Nicotine Patch] 1 each TD AD #1 pkg 07/15/18 [Rx] Megestrol Acetate [Megace] 800 mg PO DAILY #400 mls 08/10/18 [Rx] Zolpidem [Ambien] 5 mg PO HS 30 Days #30 tablet 08/19/18 [Rx] Dexamethasone [Decadron] 4 mg PO BID #14 tablet 09/13/18 [Rx] Allergies/Adverse Reactions: Allergy/AdvReac Type Severity Reaction Status Date / Time diphenhydramine AdvReac See Verified 08/19/18 08:44 [From Benadryl] Comments Date of admission: 09/10/18 16:39 Primary care physician: Lanie Jc CNP Consults: 09/10/18 17:02 Consult to Occupational Therapy [CONS] Routine Comment: Evaluate, develop and implement POC Reason for Consult: pt falling frequently and having trouble talking and walking Does patient have active BEDREST order?: No Is patient medically & hemodynamically stable?: Yes Patient assessed for mobility or mobilized this visit?: Yes Consult to Physical Therapy [CONS] Routine Comment: Evaluate, develop and implement POC Reason for Consult: pt having trouble talking and walking Does patient have active BEDREST order?: No Is patient medically & hemodynamically stable?: Yes Patient assessed for mobility or mobilized this visit?: No Consult to Controller Repairer And Tester [CONS] Routine Reason for SW Consult: passar placement for [facility] 09/10/18 18:33 Consult to Controller Repairer And Tester [CONS] Routine Reason for SW Consult: Lives at home alone and is unable to care for self. Several falls in last few days and poor hygiene and nutrition. - Constitutional Vitals: Temp Pulse Resp BP Pulse Ox 97.6 F 106 19 125/79 96 09/13/18 06:41 09/13/18 06:41 09/13/18 06:41 09/13/18 06:41 09/13/18 06:41 - Patient Status Disposition: Home, Self-Care Condition: Fair - Discharge Instructions Follow Up With: Lanie Jc CNP [Advanced Practice Nurse] - 1 week Additional Instructions: May go home by ambulance if needed - Diet and Activity Activity: resume usual activities as tolerated Diet: advance to your usual diet
[2018-09-13] MEDS: ALPRAZolam 0.5 MG TABLET PO PRN (20:56)
[2018-09-14] MEDS: Gabapentin 400 MG CAPSULE PO SCH ×3 (08:20→21:07)
[2018-09-14] MEDS: Nicotine 7 MG PATCH.TD24 TD SCH (08:20)
[2018-09-14] MEDS: Megestrol Acetate 400 MG/10 ML UDC PO SCH (08:20)
[2018-09-14] MEDS: Fenofibrate 54 MG TABLET PO SCH (08:21)
[2018-09-14] MEDS: Aspirin Enteric Coated 81 MG Tablet PO SCH (08:21)
[2018-09-14] MEDS: Insulin LISPRO 300 UNITS/3 ML VIAL SQ SCH ×3 (08:21→17:05)
[2018-09-14] MEDS: Tobramycin/Dex Opth DROPS 2.5 ML BOTTLE LEFT EYE SCH ×3 (08:22→15:09)
[2018-09-14] MEDS: Insulin DETEMIR 100 UNIT/ML X5UNITS SQ SCH ×2 (08:23→21:08)
[2018-09-14] MEDS: *HR* HYDROcodone/Acet 10/325 mg TABLET PO PRN (08:40)
[2018-09-14] MEDS: Budesonide/Formoterol 160/4.5 1 PUFF INH IH SCH ×2 (10:50→21:30)
--- NOTE | 2018-09-14 19:28 | Internal Med Progress Note ---
Date of Encounter: 09/14/18 Time of Encounter: 07:20 - Assessment and plan (1) Lung cancer Current Visit: No Status: Chronic Assessment and plan: September 12. Continue hospice care at discharge. Qualifiers: Laterality: unspecified laterality Lung location: unspecified part of lung Qualified Code(s): C34.90 - Malignant neoplasm of unspecified part of unspecified bronchus or lung (2) Metastatic cancer to brain Current Visit: No Status: Chronic Assessment and plan: September 12. As above (3) JULITO (obstructive sleep apnea) Current Visit: Yes Status: Chronic Assessment and plan: September 12. Continue CPAP at bedtime (4) Multiple falls Current Visit: Yes Status: Acute Assessment and plan: September 12. Continue PT and OT intervention September 14. Therapy reports he is impulsive and does not use appropriate safety precautions. Continue PT and OT intervention. (5) Geronimo's palsy Current Visit: Yes Status: Acute Assessment and plan: September 12. Monitor. Continue conjunctivitis treatment left eye (6) COPD (chronic obstructive pulmonary disease) Current Visit: No Status: Chronic Assessment and plan: September 12. Continue Symbicort Qualifiers: COPD type: unspecified COPD Qualified Code(s): J44.9 - Chronic obstructive pulmonary disease, unspecified (7) DM2 (diabetes mellitus, type 2) Current Visit: No Status: Chronic Assessment and plan: September 12. Hemoglobin A1c was 8.2% on 03/11/2018. Continue Levemir and Accu- Cheks with SSI. Qualifiers: Diabetes mellitus manager intermediate insulin use: with manager intermediate use Diabetes mellitus complication status: with neurologic complications Qualified Code(s): E11.42 - Type 2 diabetes mellitus with diabetic polyneuropathy; Z79.4 - manager intermediate (current) use of insulin (8) Hypertension Current Visit: No Status: Chronic Assessment and plan: September 12. Continue lisinopril September 14. He has frequent tachycardia. Discontinue lisinopril and start metoprolol. Qualifiers: Hypertension type: essential hypertension Qualified Code(s): I10 - Essential (primary) hypertension (9) Conjunctivitis Current Visit: Yes Status: Acute Assessment and plan: September 12. Continue TobraDex Qualifiers: Conjunctivitis type: acute Acute conjunctivitis type: unspecified Latera lity: left Qualified Code(s): H10.32 - Unspecified acute conjunctivitis, left eye - Subjective Interval history: September 12. He has no new complaints. September 14. After discharge orders were written and discharge summary dictated yesterday the patient changed his mind and felt he was not safe to go home. Discharge orders were canceled. He has no new complaints today. Social service has attempted to facilitate placement into a local SNF. Insurance has not yet approved the transfer. - Constitutional Vitals: Temp Pulse Resp BP Pulse Ox 98.7 F 99 17 109/72 92 09/14/18 18:39 09/14/18 18:39 09/14/18 18:39 09/14/18 18:39 09/14/18 18:39 Exam: He is resting comfortably in bed and appears in no acute distress. His affect is overall cheerful. His conjunctivitis appears improved in the left eye. I reviewed his medications and lab results. Internal Medicine: Result - Labs CBC & Chem 7: 09/11/18 05:25 09/11/18 05:25 - ABG Interpretation ABG results: PT/INR, D-dimer PT 14.0 Seconds (9.4-12.1) H 09/11/18 05:25 Consult Discharge Plan - Plan Additional Instructions: May go home by ambulance if needed Referrals: Lanie Jc, MONEY ROOM SUPERVISOR [Advanced Practice Nurse] - 1 week (We will call you Friday with a follow up appt.) Prescriptions: Dexamethasone [Decadron] 4 mg PO BID #14 tablet
[2018-09-14] MEDS: ALPRAZolam 0.5 MG TABLET PO PRN (21:07)
[2018-09-14] MEDS: Metoprolol XL (24 HR) Succ 25 MG TAB.ER.24H PO SCH (21:10)
[2018-09-15] MEDS: Tobramycin/Dex Opth DROPS 2.5 ML BOTTLE LEFT EYE SCH ×2 (01:08→08:12)
[2018-09-15 06:40] VITALS: BP 137/78
[2018-09-15] MEDS: Megestrol Acetate 400 MG/10 ML UDC PO SCH (08:03)
[2018-09-15] MEDS: Metoprolol XL (24 HR) Succ 25 MG TAB.ER.24H PO SCH (08:03)
[2018-09-15] MEDS: Aspirin Enteric Coated 81 MG Tablet PO SCH (08:03)
[2018-09-15] MEDS: *HR* HYDROcodone/Acet 10/325 mg TABLET PO PRN (08:04)
[2018-09-15] MEDS: Gabapentin 400 MG CAPSULE PO SCH (08:04)
[2018-09-15] MEDS: Fenofibrate 54 MG TABLET PO SCH (08:04)
[2018-09-15] MEDS: Nicotine 7 MG PATCH.TD24 TD SCH (08:05)
[2018-09-15] MEDS: Insulin LISPRO 300 UNITS/3 ML VIAL SQ SCH ×2 (08:12→11:36)
[2018-09-15] MEDS: Insulin DETEMIR 100 UNIT/ML X5UNITS SQ SCH (09:06)
[2018-09-15] MEDS: Budesonide/Formoterol 160/4.5 1 PUFF INH IH SCH (10:05)
--- NOTE | 2018-09-15 10:17 | Discharge Summary ---
Orders not resulted at time of discharge: Pending orders 09/10/18 14:29 Culture,Blood [BC] Stat Date of Encounter: 09/15/18 Time of Encounter: 10:05 - Discharge Diagnosis (1) Lung cancer Priority: Primary Status: Chronic Qualifiers: Laterality: unspecified laterality Lung location: unspecified part of lung Qualified Code(s): C34.90 - Malignant neoplasm of unspecified part of unspecified bronchus or lung (2) Metastatic cancer to brain Priority: Secondary Status: Chronic (3) JULITO (obstructive sleep apnea) Priority: Secondary Status: Chronic (4) Multiple falls Priority: Secondary Status: Acute (5) Geronimo's palsy Priority: Secondary Status: Acute (6) COPD (chronic obstructive pulmonary disease) Priority: Secondary Status: Chronic Qualifiers: COPD type: unspecified COPD Qualified Code(s): J44.9 - Chronic obstructive pulmonary disease, unspecified (7) DM2 (diabetes mellitus, type 2) Priority: Secondary Status: Chronic Qualifiers: 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 Diabetes mellitus complication status: with neurologic complications Qualified Code(s): E11.42 - Type 2 diabetes mellitus with diabetic polyneuropathy; 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 Rizo is a 58 year old male who came to emergency room after having multiple falls at home and appeared confused. He was evaluated in emergency room and admitted to [facility] until further disposition could be made. Initial orders were written by the emergency room physician. I saw him on September 11 performed a history and physical. I restarted him on Decadron. His mental status improved. Social service consult was made and arrangements were complete on September 15 him to be transferred to [facility] for ongoing care needs. Lisinopril was discontinued and Toprol-XL 12.5 mg daily was started for blood pressure and tachycardia. He was given TobraDex and his left eye conjunctivitis improved. He will not continue on this at discharge. He will be discharged to [facility] for ongoing care needs. He will follow with me there. - Time Spent with Patient Total time spent providing and/or coordinating discharge services: - Discharge Medications Prescriptions: ALPRAZolam [Xanax 0.5 MG Tablet] 0.5 mg PO Q4HR PRN 14 Days #84 tablet PRN Reason: Anxiety Dexamethasone [Decadron] 4 mg PO BID #14 tablet Home Medications: Aspirin [Lo-Dose Aspirin EC] 81 mg PO DAILY 08/27/17 [History] Duloxetine HCl [Cymbalta] 60 mg PO DAILY 08/27/17 [History] Fenofibrate Nanocrystallized [Triglide] 160 mg PO DAILY 08/27/17 [History] Fluticasone/Salmeterol [Advair 500-50 Diskus] 1 puff IH BID 08/27/17 [History] Gabapentin [Neurontin] 800 mg PO TID 08/27/17 [History] HYDROcodone/Acet 10/325 mg [[place] 10-325 mg] 1 tab PO Q6HR PRN 08/27/17 [History] Roflumilast [Daliresp] 500 mcg PO DAILY 08/27/17 [History] Dexamethasone [Decadron] 4 mg PO BID PRN #45 tab 07/08/18 [Rx] Alcohol Antiseptic Pads [Alcohol Pads] 1 each TP DAILY #1 pkg 07/15/18 [Rx] Nicotine [Nicotine Patch] 1 each TD AD #1 pkg 07/15/18 [Rx] Zolpidem [Ambien] 5 mg PO HS 30 Days #30 tablet 08/19/18 [Rx] Dexamethasone [Decadron] 4 mg PO BID #14 tablet 09/13/18 [Rx] ALPRAZolam [Xanax 0.5 MG Tablet] 0.5 mg PO Q4HR PRN 14 Days #84 tablet 09/15/18 [Rx] Insulin Glargine [Lantus] 30 units SQ DAILY #0 09/15/18 [Rx] Megestrol Acetate [Megace] 400 mg PO DAILY #400 mls 09/15/18 [Rx] Metoprolol XL (24 HR) Succ [Toprol Xl] 12.5 mg PO DAILY 365 Days tab.er.24h 09/15/18 [Rx] Omeprazole [PriLOSEC] 20 mg PO DAILY PRN capsule. 09/15/18 [Rx] Ondansetron ODT [Zofran ODT] 4 mg PO Q4H PRN tab.georgi 09/15/18 [Rx] Allergies/Adverse Reactions: Allergy/AdvReac Type Severity Reaction Status Date / Time diphenhydramine AdvReac See Verified 08/19/18 08:44 [From Benadryl] Comments Date of admission: 09/10/18 16:39 Primary care physician: Lanie Jc CAREER DEVELOPMENT COORDINATOR/TEACHER Consults: 09/10/18 17:02 Consult to Occupational Therapy [CONS] Routine Comment: Evaluate, develop and implement POC Reason for Consult: pt falling frequently and having trouble talking and walking Does patient have active BEDREST order?: No Is patient medically & hemodynamically stable?: Yes Patient assessed for mobility or mobilized this visit?: Yes Consult to Physical Therapy [CONS] Routine Comment: Evaluate, develop and implement POC Reason for Consult: pt having trouble talking and walking Does patient have active BEDREST order?: No Is patient medically & hemodynamically stable?: Yes Patient assessed for mobility or mobilized this visit?: No Consult to [facility] [CONS] Routine Reason for SW Consult: passar placement for [facility] 09/10/18 18:33 Consult to [facility] [CONS] Routine Reason for SW Consult: Lives at home alone and is unable to care for self. Several falls in last few days and poor hygiene and nutrition. - Constitutional Vitals: Temp Pulse Resp BP Pulse Ox 98 F 84 15 137/78 94 09/15/18 06:38 09/15/18 06:38 09/15/18 06:38 09/15/18 06:38 09/15/18 06:38 - Patient Status Disposition: Transfer SNF Condition: Fair - Discharge Instructions Additional Instructions: May go home by ambulance if needed - Diet and Activity Activity: resume usual activities as tolerated, wear oxygen at all times Diet: diabetic diet
--- NOTE | 2018-09-15 10:24 | Physician Discharge Referral ---
ExtendedCare Referral Info Transfer To: [facility] Provider in Charge: Robbie Provider in Charge after Transfer: PCP Chanda) - Diagnosis (1) Lung cancer Priority: Primary Status: Chronic (2) Metastatic cancer to brain Priority: Secondary Status: Chronic (3) JULITO (obstructive sleep apnea) Priority: Secondary Status: Chronic (4) Multiple falls Status: Acute (5) Geronimo's palsy Priority: Secondary Status: Acute (6) COPD (chronic obstructive pulmonary disease) Priority: Secondary Status: Chronic (7) DM2 (diabetes mellitus, type 2) Priority: Secondary Status: Chronic (8) Hypertension Priority: Secondary Status: Chronic (9) Conjunctivitis Priority: Secondary Status: Acute Prognosis: Poor Aware of Diagnosis: Patient Aware of Prognosis: Patient - Transfer Medications Prescriptions: ALPRAZolam [Xanax 0.5 MG Tablet] 0.5 mg PO Q4HR PRN 14 Days #84 tablet PRN Reason: Anxiety Dexamethasone [Decadron] 4 mg PO BID #14 tablet Home Medications: Aspirin [Lo-Dose Aspirin EC] 81 mg PO DAILY 08/27/17 [History] Duloxetine HCl [Cymbalta] 60 mg PO DAILY 08/27/17 [History] Fenofibrate Nanocrystallized [Triglide] 160 mg PO DAILY 08/27/17 [History] Fluticasone/Salmeterol [Advair 500-50 Diskus] 1 puff IH BID 08/27/17 [History] Gabapentin [Neurontin] 800 mg PO TID 08/27/17 [History] HYDROcodone/Acet 10/325 mg [[place] 10-325 mg] 1 tab PO Q6HR PRN 08/27/17 [History] Roflumilast [Daliresp] 500 mcg PO DAILY 08/27/17 [History] Dexamethasone [Decadron] 4 mg PO BID PRN #45 tab 07/08/18 [Rx] Alcohol Antiseptic Pads [Alcohol Pads] 1 each TP DAILY #1 pkg 07/15/18 [Rx] Nicotine [Nicotine Patch] 1 each TD AD #1 pkg 07/15/18 [Rx] Zolpidem [Ambien] 5 mg PO HS 30 Days #30 tablet 08/19/18 [Rx] Dexamethasone [Decadron] 4 mg PO BID #14 tablet 09/13/18 [Rx] ALPRAZolam [Xanax 0.5 MG Tablet] 0.5 mg PO Q4HR PRN 14 Days #84 tablet 09/15/18 [Rx] Insulin Glargine [Lantus] 30 units SQ DAILY #0 09/15/18 [Rx] Megestrol Acetate [Megace] 400 mg PO DAILY #400 mls 09/15/18 [Rx] Metoprolol XL (24 HR) Succ [Toprol Xl] 12.5 mg PO DAILY 365 Days tab.er.24h 09/15/18 [Rx] Omeprazole [PriLOSEC] 20 mg PO DAILY PRN capsule.dr 09/15/18 [Rx] Ondansetron ODT [Zofran ODT] 4 mg PO Q4H PRN tab.rapdis 09/15/18 [Rx] Allergies/Adverse Reactions: Allergy/AdvReac Type Severity Reaction Status Date / Time diphenhydramine AdvReac See Verified 08/19/18 08:44 [From Benadryl] Comments - Respiratory Orders Oxygen / L per min (2 L/m by nasal cannula 28/04. Use BiPAP at home settings at bedtime and when necessary during day time.) Smoking Cessation: Smoking cessation has been advised. For more information, call the [place] Tobacco Quit Line at 2-062-ZVQN-NOW. - Lab Orders Lab Orders: Other (include drug levels w/frequency) (CBC with differential, BMP in 1 week and every 3 months) - Mobility Orders Ambulate - Rehabiliation Orders Rehab Potential: Poor Rehab Orders: Evaluation for Physical Therapy, Evaluation for Occupational Therapy - Diet Orders No Concentrated Sweets CERTIFICATION: I certify that the transfer of the above named patient to an Extended Care Facility is necessary for the continuing treatment of the diagnosis listed. The above information is true and accurate reflection of patient's current condition. Confidential - Redisclosure prohibited without a patient's written consent.
== END 2018-09-15 12:40 ==
LOC: INPPIK 13:58 → EMEROOPIK 13:58 → INPPIK 17:19
PROVIDERS: ADMIT Internal Medicine; ATTEND Internal Medicine